=== PATIENT | male | born 1945 | race Caucasian/White ===

== ENCOUNTER 2016-11-13 10:04 | Observation (INO) | payer MEDICARE, OTHER ==
[~2016-11-13] VITALS: Ht 175.3 cm; Wt 85.4 kg
--- NOTE | 2016-11-13 10:03 | ED.REPORT ---
HPI-Trauma Multiple Date of Service Nov 13, 2016 ED Provider: The patient is a 71 year old male who presents to the emergency department by EMS after he fell off of a roof. The patient was climbing down on a later when he fell about 6-10 feet. He landed on his left side and complains of left lateral chest wall pain and left scapular pain. His pain is worse with movement. He is unsure if he lost consciousness. He was given 10 mg morphine by medics for pain. He is not on any blood thinners. He is unsure when his last tetanus was. Nursing Notes Stated Complaint: FALL Nursing Notes Reviewed: Yes Allergies: Coded Allergies: No Known Allergies (Unverified , 06/25/16) Scheduled Dexamethasone (Dexamethasone) 4 Mg Tablet 4 MG PO BID Famotidine (Pepcid) 20 Mg Tablet 20 MG PO BID Gabapentin (Gabapentin) 100 Mg Capsule 100 MG PO TID Scheduled PRN Naproxen (Naprosyn) 500 Mg Tablet 500 MG PO BID PRN PRN For Pain General Time Seen by Provider: 10:04 Chief Complaint Other (left scapular pain) Hx Obtained From: Patient, EMS Arrived By: Ambulance Onset Occurred: Just prior to arrival Symptom Duration: Since onset Progression Since Onset: Constant Caused by: Fall from height (6-10 feet) Location: : Chest (left-side chest wall): Shoulder left (scapula) Quality: Painful Severity: Current: Moderate Severity: Maximum: Moderate Immunizations: Tetanus not up to date Recent Healthcare: No recent doctor visit, No recent hospitalization Similar Sx Previous: No Past Medical History Past Medical History 1989 bladder cancer s/p bladder resection Past Surgical History Bladder resection Family History Noncontributory Smoking History Unknown if Ever Smoker Social History Alcohol Use: "Social" Other Social History: Good social support, Local resident Ambulatory Status Independent Review of Systems Review of Systems Note: +scalp lacerations, left side pain Cardiovascular: Reports: Chest pain (left-chest wall) GI: Denies: Abdominal pain Musculoskeletal: Reports: Back pain (left scapular pain, no spinal pain), Joint pain (left shoulder), Denies: Neck pain Neurologic: Reports: Change LOC (unclear), Denies: Headache Complete sys rev & neg: except as marked. Physical Exam Initial Vital Signs SEE PAPER CHART Initial VS: Reviewed Extremities: Neuro intact Skin: Warm, Dry, No cyanosis Psychiatric: Mood/affect normal, Behavior normal, Normal thought content General/Constitutional: Awake, Alert, Cooperative Head / Eyes: Normocephalic Abrasion overlying right eyebrow with some oozing blood present. Stellate laceration about his left occipital scalp with some oozing bright red blood present as well. Pupils are 2 mm equal and reactive. Neck: Supple, No swelling, Non-tender, No midline vertebral tend Trauma - Neck Specific: Positive: Immobilized - C Collar Respiratory / Chest: Breath sounds NL, Breath sounds = bilat, No respiratory distress, No rales, No rhonchi, No wheezing, No stridor, No chest wall deformity , No crepitus Tenderness about his left lateral chest wall. No palpable rib fracture. Cardiovascular: Heart rate NL, Regular rhythm, Heart sounds NL, No murmurs, No rubs, Cap refill not delayed, Peripheral circulation NL Abdomen: Atraumatic, Soft, Non-tender, No guarding, No rebound, No distention Well healed midline surgical scar about his abdomen Back: No midline vertebral tend No obvious signs of trauma about his back. There is swelling overlying his left scapula. He has tenderness about the inferior aspect of his left scapula and left lateral ribs. No T or L spine tenderness. Neurologic: Oriented X3, Speech NL, No motor deficits, No sensory deficits, Cerebellar NL, Memory NL Moving all 4 extremities. Sensation intact to all 4 extremities. GSC 15. ENT: Atraumatic, Airway patent, Mucous membranes moist No intraoral trauma. Midface stable. No nasoseptal hematoma. Upper Extremity / MS: Neurologic intact, Vascular intact Movement of his right shoulder elicits pain about his left back. When he tries to move his left arm above his head he has a lot of pain to his left shoulder and scapular region. Lower Extremity / Pelvis / MS: Neurologic intact, Vascular intact Abrasions overlying his left knee. Full active and passive range of motion of both lower extremities. Right lower extremity is atraumatic. Male Genitourinary: Atraumatic, Inspection NL, No meatal blood Interpretation & Diagnostics CT CHEST/ABDOMEN/PELVIS IMPRESSION: 1. Multiple mildly displaced left rib fractures, some of which are segmental. No pneumothorax or hemothorax. 2. No traumatic injuries of the abdomen or pelvis. 3. Moderate right and mild left hydroureteronephrosis may reflect vesicoureteral reflux in the setting of remote bladder and prostate region surgery. Dictated by: Cam Reyes M.D. on 11/13/2016 at 10:58 Lab Results Interpretation Result Diagram: 11/13/16 1025 11/13/16 1025 Test 11/13/16 10:25 White Blood Count 11.6th/mm3 (3.8-10.1) Red Blood Count 5.06mil/mm3 (4.40-5.80) Hemoglobin 15.2g/dL (13.8-17.2) Hematocrit 44.9% (41.0-50.0) Mean Corpuscular Volume 88.7fL (81-100) Mean Corpuscular Hemoglobin 30.0pg (27.0-35.0) Mean Corpuscular Hemoglobin Concent 33.9% (32.0-37.0) Red Cell Distribution Width 12.4% (12.3-15.4) Platelet Count 252bil/L (150-400) Neutrophils (%) (Auto) 58.0% (40-74) Lymphocytes (%) (Auto) 26.6% (14-46) Monocytes (%) (Auto) 11.2% (4-12) Eosinophils (%) (Auto) 2.0% (0-5) Basophils (%) (Auto) 0.8% (0-3) Prothrombin Time 9.4sec (8.1-12.5) Prothromb Time International Ratio 0.88ratio Activated Partial Thromboplast Time 23.8sec (22.8-33.0) Sodium Level 142mEq/L (134-144) Potassium Level 4.2mEq/L (3.5-5.2) Chloride Level 104mEq/L (97-108) Carbon Dioxide Level 23mmol/L (18-29) Blood Urea Nitrogen 21mg/dL (8-27) Creatinine 1.10mg/dL (0.76-1.27) Estimat Glomerular Filtration Rate 70mL/min (>59) Glucose Level 106mg/dL (60-99) Calcium Level 9.0mg/dL (8.5-10.1) Total Bilirubin 0.4mg/dL (0.0-1.2) Aspartate Amino Transf (AST/SGOT) 20U/L (0-50) Alanine Aminotransferase (ALT/SGPT) 20U/L (0-44) Alkaline Phosphatase 72U/L (25-160) Total Protein 6.9g/dL (6.4-8.4) Albumin 4.0g/dL (3.4-5.0) Hold Painter Top Tube Received (Received) Alcohol, Quantitative < 10mg/dL (0-10) ECG Interpretation ECG Interpretation: Sinus rhythm with a rate of 72 bpm Normal axis Normal intervals No ST segment changes No T wave abnormalities Unchanged from prior EKG taken on 06/25/2016 Time: 10:59 Interpreted by: ED physician CT Head Interpretation IMPRESSION: No acute intracranial abnormalities. Left parietal scalp soft tissue swelling. Dictated by: Cam Reyes M.D. on 11/13/2016 at 10:50 Study: Head CT no contrast Interpretation / Wet Read by: Interpret - Radiologist CT C-Spine Interpretation IMPRESSION: 1. No acute bony injuries of the cervical and upper thoracic spine from the foramen magnum to the T4 level. 2. Left posteromedial second through fifth rib fractures. Dictated by: Cam Reyes M.D. on 11/13/2016 at 10:53 Interpretation / Wet Read by: Wet read ED physician, Interpret - Radiologist Procedures Laceration Management Laceration Management: 2 head wounds. wound #1 above R eyebrow, 1.5cm. anesthsized with lidocaine without epi, 1cc. irrigated with wound cleanser, betadine prep. placed 4 6-0 sutures, blue in wound. wound #2 - posterior L occiput, 2cm, anesthisized with 1%lido without epi, 1.5cc. irrigated with wound cleanser, betadine prep. placed 3 sarbjit in wound. bleeding controlled in both wounds. pt tolerated well. Procedure Performed by: Allied health pract Consent / Setup / Site Prep: Informed consent provided, Time-out performed Wound Preparation: Betadine, Normal saline Irrigation: Copious Repair Skin: Prolene Suture Technique: Simple Post-Procedure / Complications: Dressing applied Re-Eval/Medical Decision Med Decision/Clinical Course Patient arrived by ambulance. The patient was triaged to the trauma bay on the acute side of the ED. Report taken in person from paramedics on arrival to the ED. Nursing notes read and interpreted. On arrival in the ED the patient was immediately placed on O2/IV/Monitors. Patient's vitals were as reported above. A primary survey was performed which showed a stable airway, adequate breathing and intact pulses, no evidence of shock. A complete secondary survey was performed which revealed above physical exam findings. Pt was rolled off of back board and spine was examined. IV access was obtained and 1L NS was started. The patient's pain was treated with IV fentanyl and hydromorphone. He received a tetanus booster. I opted to obtain CT scan of the head and neck which demonstrated no cervical spine fractures or acute intracranial process. CT scan of the chest abdomen pelvis was obtained as above and demonstrated multiple left-sided rib fractures. Of note there was some Hydroureter which was thought to be due to remote bladder instrumentation as opposed to acute ureteral injury. He remained with benign abdominal examination. Patient required multiple doses of IV narcotics to control his pain. Given his age and presence of multiple rib fractures and will be admitted to the surgery service for pulmonary hygiene and further management of his pain. He remained without hypoxia on 2-3 L by nasal cannula. There is no evidence of hemothorax or pneumothorax at this time. He is hemodynamically stable. Patient was discussed with admitting surgeon Dr. Castro and accepted for further management in stable condition. Source of Hx: Old records, EMS Re-Evaluation/Progress : Time of Eval: 11:36 Re-Evaluation/Progress Note: Rechecked the patient. Discussed plan for admission. All questions were addressed. Consultation : Referral / Consult Name: Kendall Castro MD Consulted With: Surgeon Call Returned at: 11:35 Search Engine Optimization Analyst: Will see patient, Agrees with eval, Agrees with plan, Accepts admit Counseled Regarding: Diagnosis, Lab results, Need for admission Discharge & Departure Impression: Primary Impression: Fall from ladder Encounter type: initial encounter Qualified Code: W11.XXXA - Fall on and from ladder, initial encounter Additional Impressions: Multiple rib fractures Encounter type: initial encounter Fracture type: closed Laterality: left Qualified Code: S22.42XA - Multiple fractures of ribs, left side, initial encounter for closed fracture Posttraumatic pain Disposition: ADMITTED TO HOSPITAL Discharge Condition All VS Reviewed: Yes Condition: Stable Referrals: NOPCP (PCP) Crit Care Except Billable Proc Time Spent: 105-134 minutes Services Performed: Patient management by me, Time spent at bedside, Reviewing test results, Reviewing imaging, Discussing patient care, Documentation in record, Time with fam/surrogate Scribe Attestation Portions of this note were transcribed by Josefa Castro. I, Dr. Tamayo personally performed the history, physical exam and medical decision-making; I reviewed and confirmed the accuracy of the information in the transcribed note. Signed by: Paula Zavala, 11/12/2015 and 1215. Luigi Tamayo MD Nov 13, 2016 10:03 Josefa Castro Nov 13, 2016 10:18 Maggie Hong Nov 13, 2016 12:00
[~2016-11-13 10:04] MED LIST: DXM4T PO; FAMO20T PO; GABA-500 PO; NAPR500T PO
[2016-11-13] MEDS ORDERED: fentaNYL-PF 50 mCg/mL 2 mL Inj ONE (10:09)
[2016-11-13] MEDS ORDERED: 0.9% Sodium Chloride 1,000 ML IV ONE (10:16)
[2016-11-13] MEDS ORDERED: Ondansetron 2 mg/mL 2 mL Inj IVPUSH ONE (10:20)
[2016-11-13] MEDS ORDERED: HYDROmorphone 0.5 mg/0.5 mL iSecure Syringe IVPUSH PRN (10:20)
[2016-11-13 10:42] LABS: BASOPHILS % (AUTO) 0.8 % (0-3); MONOCYTES % (AUTO) 11.2 % (4-12); Mean Corpuscular Volume 88.7 fL (81-100); Platelet Count 252 bil/L (150-400)
[2016-11-13 10:46] LABS: INR 0.88 ratio
[2016-11-13] MEDS ORDERED: TdaP Vaccine 0.5 mL Inj IM ONE (10:50)
--- NOTE | 2016-11-13 10:54 | DRSVH ---
PROCEDURE: CT BRAIN WITHOUT CONTRAST ([id number]) INDICATIONS: 71-year-old male with 10 foot fall from ladder. TECHNIQUE: Noncontrast 4.5 mm thick angled axial sections acquired from the foramen magnum to the vertex, with c oronal reformats. COMPARISON: None. FINDINGS: Image quality: Excellent. CSF spaces: Basal cisterns are patent. No extra-axial fluid collections. Ventricles are normal in size and shape. Brain: No midline shift. No intracranial masses or hemorrhage. Adan-white matter interface is norm al. Skull and face: Calvarium and visualized facial bones are intact, without suspicious lesions. There is left parietal scalp soft tissue swelling. Sinuses: Visualized sinuses and mastoids are clear. IMPRESSION: No acute intracranial abnormalities. Left parietal scalp soft tissue swelling. Dictated by: Cam Reyes M.D. on 11/13/2016 at 10:50 Approved by: Cam Reyes M.D. on 11/13/2016 at 10:52
--- NOTE | 2016-11-13 10:58 | DRSVH ---
PROCEDURE: CT CERVICAL SPINE WITHOUT CONTRAST ([id number]) INDICATIONS: 71 year-old male with neck pain after 10 foot fall from ladder. TECHNIQUE: Noncontrast 3 mm thick sections acquired from the skull base to the T4 level. Sagittal and coronal r eformats were then constructed. For radiation dose reduction, the following was used: automated exp osure control, adjustment of mA and/or kV according to patient size. COMPARISON: [facility], CT, CT CERVICAL SPINE WO CON, 06/25/2016, 23:46. FINDINGS: Image quality: Excellent. Bones: No fractures or dislocations. There is lower cervical spine disc degeneration as before, as well as mid cervical spine facet joint arthropathy. Mildly displaced posteromedial left second throug h fifth rib fractures are present. Soft tissues: Prevertebral soft tissues are normal in thickness. No paravertebral hematomas. No ap ical pneumothoraces. IMPRESSION: 1. No acute bony injuries of the cervical and upper thoracic spine from the foramen magnum to the T4 level. 2. Left posteromedial second through fifth rib fractures. Dictated by: Cam Reyes M.D. on 11/13/2016 at 10:53 Approved by: Cam Reyes M.D. on 11/13/2016 at 10:57
--- NOTE | 2016-11-13 11:11 | DRSVH ---
PROCEDURE: CT CHEST, ABDOMEN AND PELVIS WITH CONTRAST ([id number]) INDICATIONS: 71-year-old male status post 10 foot fall from ladder. TECHNIQUE: After the administration of intravenous contrast, 5 mm thick sections acquired from the lung apices t o the symphysis. 5 mm thick coronal and sagittal reformats were acquired. Additional 7 mm thick cor onal maximum intensity projection (MIP) reformats acquired through the lungs. Optional 10-minute del ayed imaging may be performed from the kidneys to the bladder. For radiation dose reduction, the fol lowing was used: automated exposure control, adjustment of mA and/or kV according to patient size. COMPARISON: None. FINDINGS: Image quality: Metallic streak artifact from multiple pelvic surgical clips obscures adjacent bony an d soft tissue structures, including the bladder base. CHEST: Lungs: No pulmonary contusions or lacerations. No acute airspace opacities. No pneumothorax or hem othorax. Central and peripheral airways appear patent and normal in caliber. Mediastinum: No mediastinal hematomas. Heart size is normal. No pericardial effusion. Thoracic ao rta and pulmonary arteries demonstrate normal size and enhancement. No mediastinal or hilar adenopat hy. Esophagus is normal in caliber. No hiatal hernia. Chest wall: Lateral left fifth through ninth rib fractures are present, as well as posteromedial seco nd through sixth rib fractures. There is small subcutaneous emphysema. The overlying left scapula ap pears intact. No axillary or supraclavicular adenopathy. Thyroid gland is normal in size but incompl etely visualized. ABDOMEN: Solid organs: Liver and spleen are normal in size and enhancement, without lacerations. Gallbladder wall thickness is normal. Biliary system is non-dilated. Pancreas enhances normally, without trans ection. No adrenal hematomas. Both kidneys enhance normally, without lacerations. Moderate right an d mild left hydroureteronephrosis is present, as well as several bilateral renal cortical simple cyst s. Peritoneum and bowel: No free fluid or air. Unenhanced bowel loops demonstrate normal wall thicknes s and caliber. Cecal base anastomotic staple line is present. Nodes and vessels: No retroperitoneal or mesenteric adenopathy. Aorta and inferior vena cava are no rmal in size and enhancement, with scattered aortic atherosclerosis. Miscellaneous: No ventral hernias. PELVIS: Genitourinary: There is mild thickening of the bladder wall. Prostate gland appears surgically absent . Miscellaneous: No inguinal hernias or adenopathy. Bones: Pelvic ring and hip joints appear intact. No vertebral compression fractures. Patient is st atus post left hip arthroplasty. IMPRESSION: 1. Multiple mildly displaced left rib fractures, some of which are segmental. No pneumothorax or hemo thorax. 2. No traumatic injuries of the abdomen or pelvis. 3. Moderate right and mild left hydroureteronephrosis may reflect vesicoureteral reflux in the settin g of remote bladder and prostate region surgery. Dictated by: Cam Reyes M.D. on 11/13/2016 at 10:58 Approved by: Cam Reyes M.D. on 11/13/2016 at 11:10
[2016-11-13] MEDS ORDERED: Ondansetron 2 mg/mL 2 mL Inj IVPUSH PRN ×2 (11:40→15:15)
[2016-11-13] MEDS ORDERED: Alum-Mag Hydrox-Simeth 30 mL Suspension PO PRN (11:40)
[2016-11-13] MEDS ORDERED: HYDROmorphone 0.5 mg/0.5 mL iSecure Syringe IVPUSH SCH (12:00)
[2016-11-13 12:49] VITALS: BP 125/81; PULSE 76; RESP 18; O2SAT 100
[2016-11-13 13:09] VITALS: BP 147/80; PULSE 70; RESP 18; O2SAT 98
[2016-11-13] MEDS: Lactated Ringer's 1,000 ML IV SCH ×2 (13:13→21:36)
[2016-11-13] MEDS ORDERED: MetoCLOpramide 5 mg/mL 2 mL Inj IVPUSH PRN (15:15)
[2016-11-13 16:23] VITALS: PULSE 82; RESP 20; O2SAT 100
[2016-11-13 16:51] VITALS: BP 163/80; PULSE 70; RESP 20; O2SAT 100
[2016-11-13] MEDS: Heparin 5,000 Unit/mL Inj SUBQ SCH (17:19)
--- NOTE | 2016-11-13 18:31 | NUR ---
Admit Pt admitted from ED at 1320 for fall from roof at home. Had to use slide board to transfer pt from [facility] to bed. Pt having c/o pain 8/10, placed pillow for splinting. IV s/l. A&O x 3, MCCANN, VSS. LEADING FIREFIGHTER and SCD's connected. Pt has left posterior laceration on head, laceration about right eyebrow and on left knee. Pt has hx bladder cancer and has neopouch. Concerned about being able to urinate since he has to use muscles and has increased pain. Urinal in place and pt wants to leave it there so he can void as needed. Orders obtained for Bright if needed, pt declines at this time. Obtained IS for pt and did extensive education on coughing and deep breathing.
--- NOTE | 2016-11-13 18:58 | HP ---
[address] [address] HISTORY AND PHYSICAL PATIENT: EVARISTO PHELPS : 1945 MR#: [id number] ADMIT: 11/13/2016 JOB ID: [id number] DATE: 11/13/2016 CHIEF COMPLAINT: Traumatic rib fractures. HISTORY OF PRESENT ILLNESS: The patient is an otherwise healthy 71-year-old man who was working on a ladder this afternoon when he slipped and fell approximately 6-10 feet. He landed partially on the garbage can and did strike his head. He believes he had a temporary loss of consciousness. He was alert and oriented when he arrived to the emergency department. He was hemodynamically normal. A complete workup was performed including a head CT, cervical spine, CT and CT of the chest, abdomen and pelvis. The only abnormal findings were multiple mildly displaced left rib fractures. He is admitted to my service for pain management and monitoring. PAST MEDICAL HISTORY: Bladder cancer. CURRENT MEDICATIONS: None. ALLERGIES: No known drug allergies. PAST SURGICAL HISTORY: 1. He had a cystectomy with neobladder performed for bladder cancer in . 2. Left hip replacement. 3. Right shoulder surgery. FAMILY HISTORY: Family history is reviewed and noncontributory. SOCIAL HISTORY: He lives in [place]. 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 He drinks socially and quit smoking 15 years ago. REVIEW OF SYSTEMS: Full review of systems obtained and significant for left chest pain and mild shortness of breath related to that pain. He also has chronic trouble urinating related to his prior operation. He also explains of six months of intermittent numbness in both hands. All other systems are negative. PHYSICAL EXAMINATION: He is afebrile with temp 36.2 degrees, heart rate is in the 70s, blood pressure is 147/80s, satting 98% on 3 L nasal, cannula, respiratory of 18 breaths per minute. In general, he appears comfortable in no acute distress. Cardiovascular is regular rate and rhythm. No appreciated murmurs, rubs, gallops. Pulmonary: His lungs are clear to auscultation bilaterally. Vascular: There is no carotid bruit. Neck has no thyromegaly. Lymph: He has no cervical lymphadenopathy. GI: His abdomen is soft, nontender, nondistended. Extremities: Warm without significant edema. Skin is warm without rash. Neuro is grossly intact. Psych: Pleasant and appropriate. He has significant left-sided chest tenderness. He has a small laceration over his right eye which has been sutured closed as well as a small laceration, left posterior head, which has been stapled closed. LABORATORIES: White blood cell count was mildly elevated at 11.6, his hematocrit was 44, his platelet count is 252. His creatinine is fine at 1.10. IMAGING: CT scan of chest, abdomen and pelvis is personally reviewed and demonstrates lateral left 5th through 9th rib fractures as well as posteromedial 2nd through 6th rib fractures. A small amount of subcutaneous emphysema. ASSESSMENT AND PLAN: This is an otherwise healthy, 71-year-old man who has suffered multiple left-sided rib fractures but no other identified injury from a fall. The patient has been admitted to the surgical service. He will be given oral analgesia. I have also instructed him on the importance of deep breathing and coughing and have given him an incentive spirometer. Physical Therapy will also be consulted to help getting him mobilized. Anticipate that he will be in the hospital a day or two.
[2016-11-13 20:12] VITALS: BP 135/79; PULSE 76; RESP 16; O2SAT 100
[2016-11-14] MEDS: Lactated Ringer's 1,000 ML IV SCH ×2 (00:29→11:19)
[2016-11-14] MEDS: Heparin 5,000 Unit/mL Inj SUBQ SCH ×3 (00:34→17:23)
[2016-11-14 01:24] VITALS: BP 154/84; PULSE 76; RESP 16; O2SAT 97
[2016-11-14 05:41] VITALS: BP 183/97; PULSE 85; RESP 18; O2SAT 99
[2016-11-14 05:55] LABS: BASOPHILS % (AUTO) 0.1 % (0-3); EOSINOPHILS % (AUTO) 0.3 % (0-5); MONOCYTES % (AUTO) 17.1 % (4-12); Mean Corpuscular Hemoglobin 30.3 pg (27.0-35.0); Mean Corpuscular Volume 90.6 fL (81-100); NEUTROPHILS % (AUTO) 70.2 % (40-74); Platelet Count 211 bil/L (150-400)
--- NOTE | 2016-11-14 06:04 | NUR ---
; pt straight cathed himself with 2 assist to stand- 1100 output. Addendum: 11/14/16 at [address] RN Pt refused an indwelling catheter. States has in and out self cathed himself at home.
--- NOTE | 2016-11-14 10:53 | PROG NOTE ---
[address] [address] PROGRESS NOTE PATIENT: EVARISTO PHELPS : 1945 MR#: [id number] ADMIT: 11/13/2016 JOB ID: [id number] DATE: 11/14/2016 SUBJECTIVE: The patient is seen hospital day two, after his admission for multiple rib fractures. The patient is doing fine. Not unexpectedly, he is having a little bit more pain today, especially with cough. He has remained afebrile and hemodynamically normal over the last 24 hours. He is satting 99% on 2 L nasal cannula. Respiratory rate of 18 breaths per minute. In general, he appears comfortable, in no acute distress. He is able to pull almost a L on the incentive spirometer. His breath sounds are clear to auscultation bilaterally. His white blood cell count is normal today at 9.4. His hematocrit is 39.4. ASSESSMENT AND PLAN: This is a 71-year-old man who fell off a ladder and suffered multiple left-sided rib fractures. Admitted for pain control. I encouraged him to continue to utilize incentive spirometer and good pulmonary toilet. Physical therapy is going to work with him today. I anticipate he will need another day or so in the hospital.
[2016-11-14 13:21] VITALS: BP 148/77; PULSE 83; RESP 18; O2SAT 94
--- NOTE | 2016-11-14 13:22 | NUR ---
Evaluation completed. Please go to "Notes" then click on "Assessments and Notes" (bottom left corner of screen). Then select appropriate discipline tab on top of screen.
[2016-11-14] MEDS: Polyethylene Glycol (PEG) 17 Gm Powder PO PRN (17:22)
--- NOTE | 2016-11-14 17:48 | NUR ---
Pain/activity/voiding pt pain down to 4/10 with oxycodone q4 hours PRN Pt up walking in asher with PT and RN, sitting in chair for meals, encouraging Coughing and deep breathing and using IS. Pt unable to void, self cathed twice this shift.
[2016-11-14 19:57] VITALS: BP 152/82; PULSE 95; RESP 18; O2SAT 92
[2016-11-15] MEDS: Heparin 5,000 Unit/mL Inj SUBQ SCH ×3 (00:13→18:14)
--- NOTE | 2016-11-15 06:21 | NUR ---
Shift Note Assumed pt care at 0230, pt alert/oriented x4 able to make needs known, noted SL IV on RAC, pain managed with PO Roxicodone, effective per pt report, at 0500 pt able to ambulate around unit x3 laps, tolerated well, call light in reach.
[2016-11-15 06:28] VITALS: BP 145/78; PULSE 94; RESP 18; O2SAT 92
--- NOTE | 2016-11-15 11:50 | PROG NOTE ---
[address] [address] PROGRESS NOTE PATIENT: EVARISTO PHELPS : 1945 MR#: [id number] ADMIT: 11/13/2016 JOB ID: [id number] DATE: 11/15/2016 SUBJECTIVE: The patient is seen in followup for his left-sided rib fractures. He tells me that he is having a little less pain and feeling a little bit more mobile today. He is otherwise doing well. He has remained afebrile, hemodynamically normal. This morning he is alert, oriented and comfortable. His breath sounds equal bilaterally. There is no bruising or external signs of trauma to the left chest. ASSESSMENT AND PLAN: This is a 71-year-old man who fell off a ladder and suffered multiple left-sided rib fractures. Admitted for pain control. The patient is looking better today and is doing better in terms of mobility and pain control. Anticipate that he will be able to go home hopefully by tomorrow, maybe even this afternoon.
--- NOTE | 2016-11-15 12:41 | NUR ---
Cont ambulation w/nsg Pt is to continue ambulating w/nsg as tolerated throughout day; PT will cont to see for progression of bed mobility and CGA->SBA assist for ambulation.
[2016-11-15 14:35] VITALS: BP 138/77; PULSE 96; RESP 18; O2SAT 96
[2016-11-15] MEDS: Polyethylene Glycol (PEG) 17 Gm Powder PO PRN (17:27)
--- NOTE | 2016-11-15 19:21 | NUR ---
activity/pain Pt up walking in asher several half a dozen times this shift, sitting in chairs for meals, Pain controlled with PO oxycodone [id number] PRN. Pt feeling constipated, administered Miralax, has not had BM yet. Self cathing for voiding.
[2016-11-15 20:20] VITALS: BP 132/72; PULSE 83; RESP 20; O2SAT 93
[2016-11-15 20:30] VITALS: BP 127/76; PULSE 82; RESP 14; O2SAT 88
--- NOTE | 2016-11-15 21:47 | NUR ---
Pain Problem: Patient c/o pain 8/10 on pain scale due to L rib fractures. Describes pain as sharp and throbbing. Pt states pain is constant but worse with activity. He has been up to ambulate several times throughout the shift. Interventions: Oxycodone Hcl 10mg has been administered q4h PRN PO. Last given at 1814. Pt was offered additional Tylenol to help relieve pain but he denied. Evaluation: Pt is sleeping soundly with no complaints. While taking his vital signs, he kept falling asleep. O2 sat dropped to 88. After letting my supervising nurse know, he was immediately given oxygen supplementation via nasal cannula at 1L. Addendum: 11/15/16 at 2203 by JACKELYN PAN Safety: Pt bed is in low position and locked. Call light is within reach. Nonskid socks are on and fall precaution posted.
[2016-11-16] MEDS: Heparin 5,000 Unit/mL Inj SUBQ SCH ×2 (01:49→07:57)
[2016-11-16 04:55] VITALS: BP 135/72; PULSE 84; RESP 18; O2SAT 93
--- NOTE | 2016-11-16 05:51 | NUR ---
Activity Patient able to ambulate sing lap around unit. SBA with gait belt. Self catheterization with set up of 500ml. Pain maintained within manageable range this shift. Bed in low position, wheels locked, call light within reach, and intentional rounding.
[2016-11-16] MEDS ORDERED: OXYC5TAB72 PO (09:18)
--- NOTE | 2016-11-16 09:23 | NUR ---
Social Work: Initial Assessment / Readiness for d/c Data: Pt is a 71 y/o male admitted for multiple rib rx post trauma. Pt's PCP is not listed, pt's insurance is Medicare with [employer] supp. EMR reviewed. PT recommending home with outpt PT. LIFEGUARD met with pt at bedside, role explained. Pt states he lives in a single story home with his spouse where he uses no DME but has a cane if needed. Pt states there are 3 steps to enter his home and he requested a wheel-chair van transportation home. LIFEGUARD notified pt that he will likely have to pay for that privately, estimated from $60-$75 for the ride, pt agreeable to this. Pt states he typically drives, had no HH or SNF hx, no LTC or VA benefits, is not a caregiver, has a DPOA who is his , LIFEGUARD requested a copy for hospital. Pt states MD told him will will d/c today, no d/c orders in yet. LIFEGUARD will continue to follow. UR specialist notified pt is wanting wheelchair van. Assessment: Pt who is independent at baseline. Plan: Pt will d/c home via wheel-chair van private pay when medically stable, likely today. LIFEGUARD will continue to follow. KIERAN Chaves Addendum: 11/16/16 at 0927 by CHIO MARINA Amended: Links added.
--- NOTE | 2016-11-16 09:24 | PCM.DIMED ---
Discharge Instructions Date of Service Nov 16, 2016 Dates of Hospitalization Nov 13, 2016 at 12:41 Discharge Diagnosis Discharge Diagnosis Rib Fracture Medication Instructions Please purchase over the counter Miralax or other stool softener, it is very important that you take this to avoid constipation which could lead to straining and exacerbate your rib pain. Diet No restrictions Activity Limited until seen by PCP Call your provider Fever or Chills, Shortness of breath, Bleeding, Chest pain, Vomitting, Excessive diarrhea, Weakness (unilateral) Patient Instructions Take it easy for the next few days. Gradually advance your activity levels including easy level surface walking over the next week as guided by your pain and breathing. It you feel worsening pain or have trouble breathing back off on your exertion. Try to take only as much pain medication as needed in order to avoid constipation, that being said it is easier to stay ahead of pain than catch back up to it once it begins getting worse. If you feel any sharp pains with breathing or cough up any bloody sputum contact our office immediately. Follow-up plan Follow with Dr. Chong in our outpatient surgical office in 2 weeks. Follow-up Provider: Tejinder Chong MD Follow-up with PCP in: 2 weeks Paul Nicole DO Nov 16, 2016 09:24
[2016-11-16 09:25] VITALS: BP 131/82; PULSE 79; RESP 18; O2SAT 93
--- NOTE | 2016-11-16 09:39 | PCM.DC.MED ---
Discharge Summary Date of Service Nov 16, 2016 Dates of Hospitalization Date of Hospital Admission Nov 13, 2016 at 12:41 Date of Discharge: Nov 16, 2016 Providers: Admitting Physician: Kendall Castro MD Primary Care Physician: Jannet Attending Physician: Kendall Castro MD Diagnosis at Time of Discharge Diagnosis at Time of Discharge Rib Fracture Procedures XRay, CTs & MRIs CT CHEST, ABDOMEN AND PELVIS WITH CONTRAST IMPRESSION: 1. Multiple mildly displaced left rib fractures, some of which are segmental. No pneumothorax or hemothorax. 2. No traumatic injuries of the abdomen or pelvis. 3. Moderate right and mild left hydroureteronephrosis may reflect vesicoureteral reflux in the setting of remote bladder and prostate region surgery. Dictated by: Cam Reyes M.D. on 11/13/2016 at 10:58 Approved by: Cam Reyes M.D. on 11/13/2016 at 11:10 CT CERVICAL SPINE WITHOUT CONTRAST IMPRESSION: 1. No acute bony injuries of the cervical and upper thoracic spine from the foramen magnum to the T4 level. 2. Left posteromedial second through fifth rib fractures. Dictated by: Cam Reyes M.D. on 11/13/2016 at 10:53 Approved by: Cam Reyes M.D. on 11/13/2016 at 10:57 CT BRAIN WITHOUT CONTRAST IMPRESSION: No acute intracranial abnormalities. Left parietal scalp soft tissue swelling. Dictated by: Cam Reyes M.D. on 11/13/2016 at 10:50 Approved by: Cam Reyes M.D. on 11/13/2016 at 10:52 . Brief History Taken from History and Physical composed by Dr. Kendall Castro on 11/13/16 The patient is an otherwise healthy 71-year-old man who was working on a ladder this afternoon when he slipped and fell approximately 6-10 feet. He landed partially on the garbage can and did strike his head. He believes he had a temporary loss of consciousness. He was alert and oriented when he arrived to the emergency department. He was hemodynamically normal. A complete workup was performed including a head CT, cervical spine, CT and CT of the chest, abdomen and pelvis. The only abnormal findings were multiple mildly displaced left rib fractures. He is admitted to my service for pain management and monitoring. . Hospital Course The patient was admitted with significant pain and breathing difficulty. We provided oral analgesia with Oxycodone 5/325 and Acetaminophen, physical therapy for mobilization, and incentive spirometry to maintain adequate respiration. He made gradual progress over the course of his hospital stay such that on the day of discharge he was able to ambulate to his chair and bathroom with a tolerable amount of pain. He was instructed on the continued use of incentive spirometry and the necessity for Miralax or other stool softener; and given instructions on concerning symptoms that would require re-evaluation. On the day of discharge he felt capable and comfortable enough to go home. Exam Vital Signs (Last) Date Time Temp Pulse Resp B/P Pulse Ox O2 Delivery O2 Flow Rate FiO2 11/16/16 09:25 36.6 79 18 131/82 93 Room Air 11/16/16 04:55 1.00 Exam Gen: A/O x3, pleasant cooperative gentleman in mild acute distress secondary to rib pain HEENT: mucous membranes pink and moist, small superficial laceration superior to left lateral orbital ridge which appears to be healing well, EOMI, PERRL Neck: Supple non-tender, full ROM Chest: Mild tenderness to palpation on left med-clavicular line over ribs 2-6 Resp: Lungs CTA BL, mild-moderate pain with deep inspiration CV: RRR no murmurs rubs or gallops Extremities: No cyanosis clubbing or edema, good capillary refill Neuro: CN 2-12 grossly intact, no focal neurologic deficit Psych: Patient much more upbeat and comfortable compared to prior exam Test 11/13/16 10:25 11/14/16 05:27 Prothrombin Time 9.4sec (8.1-12.5) Prothromb Time International Ratio 0.88ratio Activated Partial Thromboplast Time 23.8sec (22.8-33.0) Hold Painter Top Tube Received (Received) Alcohol, Quantitative < 10mg/dL (0-10) White Blood Count 9.4th/mm3 (3.8-10.1) Red Blood Count 4.35mil/mm3 (4.40-5.80) Hemoglobin 13.2g/dL (13.8-17.2) Hematocrit 39.4% (41.0-50.0) Mean Corpuscular Volume 90.6fL (81-100) Mean Corpuscular Hemoglobin 30.3pg (27.0-35.0) Mean Corpuscular Hemoglobin Concent 33.5% (32.0-37.0) Red Cell Distribution Width 12.4% (12.3-15.4) Platelet Count 211bil/L (150-400) Neutrophils (%) (Auto) 70.2% (40-74) Lymphocytes (%) (Auto) 12.0% (14-46) Monocytes (%) (Auto) 17.1% (4-12) Eosinophils (%) (Auto) 0.3% (0-5) Basophils (%) (Auto) 0.1% (0-3) Sodium Level 138mEq/L (134-144) Potassium Level 4.6mEq/L (3.5-5.2) Chloride Level 98mEq/L (97-108) Carbon Dioxide Level 26mmol/L (18-29) Blood Urea Nitrogen 21mg/dL (8-27) Creatinine 0.97mg/dL (0.76-1.27) Estimat Glomerular Filtration Rate 81mL/min (>59) Glucose Level 147mg/dL (60-99) Calcium Level 8.4mg/dL (8.5-10.1) Total Bilirubin 0.7mg/dL (0.0-1.2) Aspartate Amino Transf (AST/SGOT) 34U/L (0-50) Alanine Aminotransferase (ALT/SGPT) 22U/L (0-44) Alkaline Phosphatase 65U/L (25-160) Total Protein 5.8g/dL (6.4-8.4) Albumin 3.5g/dL (3.4-5.0) Discharge Medications As needed oxyCODONE (oxyCODONE) 5 Mg Tablet 5-10 MG PO Q4H PRN PRN For Severe Pain Prescribed by: STEFFI NICOLE, DO Additional med instructions Please purchase over the counter Miralax or other stool softener, it is very important that you take this to avoid constipation which could lead to straining and exacerbate your rib pain. Followup Plan Disposition: Home with follow up in 2 weeks. Follow-up plan Follow with Dr. Chong in our outpatient surgical office in 2 weeks. Discharge Diet: No restrictions Discharge Activity: Limited until seen by PCP Patient Instructions Take it easy for the next few days. Gradually advance your activity levels including easy level surface walking over the next week as guided by your pain and breathing. It you feel worsening pain or have trouble breathing back off on your exertion. Try to take only as much pain medication as needed in order to avoid constipation, that being said it is easier to stay ahead of pain than catch back up to it once it begins getting worse. If you feel any sharp pains with breathing or cough up any bloody sputum contact our office immediately. Follow-up Provider: Tejinder Chong MD Follow-up with PCP in: 2 weeks Steffi Nicole DO Nov 16, 2016 09:39
--- NOTE | 2016-11-16 09:45 | PROG NOTE ---
[address] [address] PROGRESS NOTE PATIENT: EVARISTO PHELPS : 1945 MR#: [id number] ADMIT: 11/13/2016 JOB ID: [id number] DATE: 11/16/2016 SUBJECTIVE: The patient is seen in followup for his left rib fractures. This morning he tells me he is doing much better. He is up in a chair. He is eating breakfast. He appears very comfortable. He has remained afebrile and hemodynamically normal overnight. He is maintaining his oxygen saturation currently on room air. His breathing is unlabored. He shows no signs of pain. ASSESSMENT/PLAN: A 71-year-old man who fell off a ladder and suffered multiple left-sided rib fractures. He is doing much better today. He has good pain control. He is able to get up and mobilize. We discussed discharge. He feels ready to go home. He will follow up with surgical clinic in two weeks.
--- NOTE | 2016-11-16 15:33 | NUR ---
discharge Orders to discharge pt to home. Pt ambulating in hallways with SBA and steady gait observed, reports pain controlled with current po pain medication. IV d/c'd intact. Reviewed discharge instructions and medications with pt, pt verbalized understanding. Hard copy of Rx given to pt for discharge. Pt's friend to drive him home. Pt to f/u with Dr. nuñez on 11/24/16 at 2:30pm, phone number provided. Care notes provided on rib fx and medications. Escorted out via wheelchair in stable condition with all belongings and discharged to home with friend driving at 1248. Discharged to home.
[2017-02-27] MEDS ORDERED: DICL100G26 TOPICAL (18:34)
[2017-02-27] MEDS ORDERED: IBUP200C PO (18:34)
[2017-02-27] MEDS ORDERED: SILD100T PO (18:34)
== END 2016-11-16 12:52 | disposition home or self-care (01) ==
LOC: SED 10:04 → OSC 12:41
PROVIDERS: ADMIT General Practice; ATTEND General Practice
DX: S22.42XA Multiple fractures of ribs, left side, initial encounter for closed fracture (principal); W11.XXXA Fall on and from ladder, initial encounter; Y93.H3 Activity, building and construction; Y92.017 Garden or yard in single-family (private) house as the place of occurrence of the external cause; Y99.9 Unspecified external cause status; S01.111A Laceration without foreign body of right eyelid and periocular area, initial encounter; S01.01XA Laceration without foreign body of scalp, initial encounter; Z96.642 Presence of left artificial hip joint
CPT/HCPCS: 12013; 36415; 70450; 71260; 72125; 74177; 80053; 85025; 85610; 85730; 86850; 90471; 90715; 93005; 94640; 96374; 96375; 96376; 97116; 97162; 99291; 99292; G0378; G0390; G0480; G8978; G8979; J1170; J1644; J2405; J3010; J7030; J7120; Q9967

== ENCOUNTER 2017-02-28 11:35 | Day surgery (SDC) | payer MEDICARE, OTHER ==
[~2017-02-28] VITALS: Ht 175.3 cm; Wt 92.0 kg
[~2017-02-28 11:35] MED LIST changes: +0.9% Sodium Chloride 1,000 ML IV PRN; +DICL100G26 TOPICAL; -DXM4T PO; -FAMO20T PO; -GABA-500 PO; +IBUP200C PO; -NAPR500T PO; +SILD100T PO; +Sodium Chloride LOK Flush 10 mL Syringe IV PRN; +fentaNYL-PF 50 mCg/mL 2 mL Inj IVPUSH PRN
[2017-02-28 11:50] VITALS: BP 132/83; PULSE 67; RESP 14; O2SAT 97
--- NOTE | 2017-02-28 13:12 | PCM.ENDCOL ---
Colonoscopy Date of Service: February 28, 2017 Physician Gadiel Sanz MD Pre Procedure Diagnosis: Screening family history of colon cancer Post Procedure Dx & Findings: Polyp hemorrhoids diverticula Procedure Colonoscopy PROCEDURE IN DETAIL: Prep adequate Withdrawal time 16 minutes After unremarkable rectal examination the Olympus video colonoscope was inserted patient's anal canal and was advanced to cecum. Landmarks were identified including the ileocecal valve and appendiceal orifice. Scope was withdrawn systematically. Visualized colonic mucosa showed healthy shiny mucosa with normal healthy-appearing vasculature. In the transverse colon, there was a 2 mm polyp which was removed completely using cold snare. In the rectosigmoid junction there was a 3 mm polyp which was completely using cold snare and forceps. In the sigmoid colon there were a few small diverticula. In the rectum retroflexion was done which showed hemorrhoids. Anal canal was inspected carefully on the way out and hemorrhoids noted. Impression Polyps 2 status post complete removal Diverticuli Family history of colon cancer Hemorrhoids Recommendation Repeat colonoscopy 5 years Diverticular diet Presedation Assessment Risks and Benefits Informed consent was obtained from the patient after all risks and benefits including but not limited to drug reaction, infection, pain, bleeding, perforation, as well as alternatives were discussed. Patient monitoring Continuous pulse oximetry, cardiac monitoring, blood pressure monitoring, IV access, and oxygen at 2L per nasal cannula. Periprocedural Fentanyl: Fentanyl 75mcg Incrementally Midazolam: Midazolam 3mg Incrementally Complications There were no periprocedural complications identified. Post Procedure Plan Post Procedure Recommendations 1. Restrict activities today. 2. Resume normal activities in the morning. 3. Resume medications. 4. Patient informed of normal post procedure side effects as bloating, drowsiness, blood streaking in the stool. 5. average risk CRCS. If colon polyps come back as: -Hyperplastic- can repeat colonoscopy in 10 years -Tubular adenoma- repeat colonoscopy in 5 years -Tubulovillous/villous adenoma- repeat colonoscopy in 3 years -If any dysplasia- return to clinic as soon as possible 6. Please don't hesitate to call me with any questions. Gadiel Sanz MD February 28, 2017 13:12
[2017-02-28 13:15] VITALS: BP 151/79; PULSE 67; RESP 14; O2SAT 98
[2017-02-28 13:27] VITALS: BP 138/76; PULSE 73; RESP 14; O2SAT 98
[2017-02-28] MEDS ORDERED: 0.9% Sodium Chloride 1,000 ML IV PRN (13:57)
--- NOTE | 2017-03-01 17:47 | PATH ---
SURGICAL PATHOLOGY Attending Physician:Gadiel Sanz M.D. CASE STATUS: Signed Out PATIENT NAME: EVARISTO PHELPS PID: [id number] : 1945 DATE COLLECTED:02/28/2017 22:53 SPECIMEN: 1: Colon, Biopsy 2: Colon, Biopsy CLINICAL HISTORY: 1). TRANSVERSE COLON POLYP 2). RECTO-SIGMOID COLON POLYP FINAL DIAGNOSIS: 1.TRANSVERSE COLON POLYP, BIOPSY: Tubular adenoma; negative for high-grade dysplasia. 2.RECTOSIGMOID COLON POLYP, BIOPSY: Portions of tubular adenoma x2; negative for high-grade dysplasia. Superficial portion of colorectal mucosa x1 with focal features of hyperplastic polyp. ICD10 K63.5 GROSS DESCRIPTION: The specimen is received in two formalin filled containers labeled with the patient's name. 1). The specimen is sublabeled "transverse colon polyp" and consists of a 0.4 x 0.4 x 0.3 CM portion of tissue. The specimen is entirely submitted in cassette 1A. 2). The specimen is sublabeled "recto sigmoid colon polyp" and consists of 3 portions of tissue which aggregate to 0.3 x 0.3 x 0.2 CM. The specimen is entirely submitted in cassette 2A. 03/01/2017 [facility] MICRO DESCRIPTION: See diagnosis. ICD-9 CODES: CPT CODES: 1: 52093 2: 48657 Electronically Signed Out Cami Rajput MD [facility] Pathology [facility], [place] [address] Technical component performed at [facility], [address] [place] [address] Ave[address], [place], [address]
== END 2017-02-28 23:59 | disposition home or self-care (01) ==
LOC: END 11:35
PROVIDERS: ATTEND Internal Medicine
DX: Z12.11 Encounter for screening for malignant neoplasm of colon (principal); Z80.0 Family history of malignant neoplasm of digestive organs; D12.3 Benign neoplasm of transverse colon; D12.5 Benign neoplasm of sigmoid colon; K64.9 Unspecified hemorrhoids; K57.30 Diverticulosis of large intestine without perforation or abscess without bleeding; K59.09 Other constipation; Z85.51 Personal history of malignant neoplasm of bladder; Z87.891 Personal history of nicotine dependence
CPT/HCPCS: 45380; 45385; 99153; G0500; J7030